=== PATIENT | female | born 1940 | race Two or more races ===

== ENCOUNTER 2018-12-08 12:34 | Outpatient (CLI) | payer MEDICARE, MEDICAID ==
[~2018-12-08 12:34] MED LIST: AMLO10TA4 PO; CLON0.1T PO; HYDR100T27 PO; METF-440 PO; NITR0.4T SL; RANI150T8 PO; ROSU10TA2 PO; SITA25TA PO; TRAM50TA2 PO; VALS1TAB4 PO
== END 2018-12-08 23:59 | disposition home or self-care (01) ==
LOC: US 12:34
DX: N28.9 Disorder of kidney and ureter, unspecified (principal); Z90.5 Acquired absence of kidney
CPT/HCPCS: 76770-TC

== ENCOUNTER 2019-03-30 16:57 | Outpatient (CLI) | payer MEDICARE, MEDICAID | END 2019-03-30 23:59 | disposition home or self-care (01) | LOC: RAD 16:57 | DX: J98.4 Other disorders of lung (principal); I51.7 Cardiomegaly; M19.011 Primary osteoarthritis, right shoulder; M40.294 Other kyphosis, thoracic region; M46.04 Spinal enthesopathy, thoracic region; I10 Essential (primary) hypertension; E11.9 Type 2 diabetes mellitus without complications; Z90.710 Acquired absence of both cervix and uterus | CPT/HCPCS: 71046 ==

== ENCOUNTER 2020-06-14 12:20 | Inpatient (IN) | payer MEDICARE, OTHER ==
[~2020-06-14] VITALS: Ht 162.6 cm; Wt 83.0 kg
--- NOTE | 2020-06-14 12:30 | NUR ---
bib daughter in law c/o fever x 4 days. vs checked. papa on monitor. iv access started blood draw done. seen by
[2020-06-14] MEDS ORDERED: ERGO500014 PO (13:16)
[2020-06-14] MEDS ORDERED: EZET10TA32 PO (13:16)
[2020-06-14] MEDS ORDERED: LEVO125T8 PO (13:16)
[2020-06-14] MEDS ORDERED: SERT25TA5 PO (13:16)
[2020-06-14] MEDS ORDERED: DEXL30CA3 PO (13:16)
[2020-06-14] MEDS ORDERED: POTA8TAB3 PO (13:16)
[2020-06-14] MEDS ORDERED: LABE100T5 PO (13:16)
[2020-06-14] MEDS ORDERED: TORS20TA3 PO (13:16)
[2020-06-14] MEDS ORDERED: ASPI-1420 PO (13:16)
--- NOTE | 2020-06-14 13:30 | NUR ---
pt offered with lunch/food to eat, but she states that she is not hungry and just wants water. water provided.
--- NOTE | 2020-06-14 13:31 | NUR ---
urine collected sent to lab
[2020-06-14 13:36] LABS: BASOPHILS % (AUTO) 0.5 % (0.0-2.0); EOSINOPHILS % (AUTO) 3.6 % (0.0-6.0); HEMATOCRIT 27 % (33-45); LYMPHOCYTES # (AUTO) 0.8 /CMM (0.8-4.8); LYMPHOCYTES % (AUTO) 12.8 % (20.0-44.0); MEAN CORPUSCULAR HGB CONC 33 g/dl (31.0-36.0); MEAN CORPUSCULAR VOLUME 102 fL (82-100); MONOCYTES # (AUTO) 0.9 /CMM (0.1-1.30); MONOCYTES % (AUTO) 16.1 % (2.0-12.0); NEUTROPHILS # (AUTO) 3.9 /CMM (1.8-8.9); PLATELET COUNT (AUTO) 189 /CMM (150-450); RED BLOOD CELL COUNT(AUTO) 2.68 MIL/uL (4.0-5.2); WHITE BLOOD COUNT (AUTO) 5.9 K/uL (4.3-11.0)
--- NOTE | 2020-06-14 13:38 | NUR ---
shirlene (daughter in law) [phone]
[2020-06-14 13:56] LABS: BILIRUBIN,URINE Negative (NEGATIVE); COLOR,URINE YELLOW (YELLOW); LEUKOCYTE ESTERASE ,URINE Small (NEGATIVE); NITRITE, URINE Negative (NEGATIVE); PROTEIN,URINE >=300 mg/dl (NEGATIVE); UGLUCOSE 100 MG/DL mg/dL (NEGATIVE); UROBILINOGEN,URINE 0.2 EU/dL (0.2)
[2020-06-14 14:01] LABS: PH,URINE >8.5 (5.0-8.0)
[2020-06-14 14:02] LABS: BACTERIA,URINE 1+ /HPF (None Seen); SQUAMOUS EPITHELIAL CELL,UR Few /HPF (None Seen)
[2020-06-14 14:12] LABS: D-DIMER 11.76 mg/L(FEU (0.17-0.50)
[2020-06-14] MEDS ORDERED: PIPERACILLIN /TAZOBACTAM 3.375 G in IV D5W 50 ML IV ONE (14:30)
--- NOTE | 2020-06-14 14:33 | NUR ---
covid antigen and pcr and rapid influenza collected and sent to lab
[2020-06-14] MEDS ORDERED: ZOLPIDEM TARTRATE 5 MG TABLET PO PRN (16:00)
[2020-06-14] MEDS ORDERED: MAGNESIUM HYDROXIDE 30 ML UDC PO PRN (16:00)
[2020-06-14] MEDS ORDERED: ONDANSETRON HCL/PF 4 MG/2 ML VIAL IVP PRN (16:00)
[2020-06-14] MEDS ORDERED: ACETAMINOPHEN 325 MG TABLET PO PRN (16:00)
[2020-06-14] MEDS ORDERED: MAG HYDROX/AL HYDROX/SIMETH 30 ML UDC PO PRN (16:00)
[2020-06-14] MEDS ORDERED: Z GUARD REMEDY 2 OZ OINT TP PRN (16:00)
--- NOTE | 2020-06-14 16:27 | NUR ---
NURSING SUP GAVE TELE BED 103.
--- NOTE | 2020-06-14 16:31 | NUR ---
STILL WAITING FOR LAB RESULT BUN AND CREATININE TO CONTINUE WITH CT PULMONARY ANGIOGRAM WITH CONTRAST.
--- NOTE | 2020-06-14 16:47 | NUR ---
pt offered with snacks, but still states that she does not feel like eating. juice provided
--- NOTE | 2020-06-14 17:26 | NUR ---
received bed 329-1
--- NOTE | 2020-06-14 17:34 | NUR ---
report given to daniel gurrola at [facility]
[2020-06-14 18:00] LABS: CREATINE KINASE, TOTAL 77 U/L (26-192)
[2020-06-14 18:24] LABS: CARBON DIOXIDE 25 mmol/L (21-32); CHLORIDE 99 mmol/L (98-107); POTASSIUM 4.6 mmol/L (3.5-5.1); SODIUM SERUM 137 mmol/L (136-145)
[2020-06-14 18:25] LABS: ALANINE AMINOTRANSFERASE 18 U/L (12-78); ALBUMIN 2.7 g/dL (3.4-5.0); ALKALINE PHOSPHATASE 50 U/L (46-116); ASPARTATE AMINOTRANSFERASE 27 U/L (15-37); B-TYPE NATRIURETIC PEPTIDE 13064 PG/ML (0-125); BILIRUBIN,TOTAL 0.5 mg/dL (0.2-1.0); C-REACTIVE PROTEIN 20.5 mg/dL (0.0-0.9); CALCIUM, SERUM 8.9 mg/dL (8.5-10.1); FERRITIN 1886 ng/mL (8-388); GLUCOSE 153 mg/dL (74-106); UREA NITROGEN, BLOOD 48 mg/dL (7-18)
[2020-06-14 18:26] LABS: TOTAL PROTEIN, SERUM 7.3 g/dL (6.4-8.2)
[2020-06-14 18:28] LABS: CREATININE 8.3 mg/dL (0.6-1.3)
--- NOTE | 2020-06-14 18:30 | NUR ---
pt transferred to room 329, rn assuming care is by bedside.
[2020-06-14] MEDS ORDERED: IV NS 0.9% 250 ML IV ONE (18:49)
[2020-06-14] MEDS ORDERED: IOHEXOL-350 100 ML VIAL IV ONE (18:49)
[2020-06-14 18:54] VITALS: BP 157/65
[2020-06-14 20:00] VITALS: BP 131/65
--- NOTE | 2020-06-14 20:47 | NUR ---
MS/TELE/RN RECEIVED PATIENT AT 1930 LYING IN BED AWAKE, ALERT, ORIENTED, COMFORTABLE, NO C/O PAIN, NO DISTRESS NOTED, CALL LIGHT IN REACH. RECEIVED A CALL FROM DR. BAKER, RECEIVED SOME PATIENT'S HISTORY. PER DR. BAKER PATIENT IS ABLE TO GIVE DIALYSIS CONSENT. DIALYSIS CONSENT WAS THEN OBTAINED FROM THE PATIENT WITH THE HD RN TRANSLATES. PRESENTLY, HD IS ONGOING. WILL ADMIT PATIENT AFTER THE DIALYSIS IS FINISHED.
[2020-06-14] MEDS: LABETALOL HCL (100MG) 100 MG TABLET PO SCH (22:47)
[2020-06-14] MEDS: PIPERACILLIN /TAZOBACTAM 2.25 G in IV D5W 50 ML IV SCH (22:54)
[2020-06-15] VITALS: BP 131/65
--- NOTE | 2020-06-15 01:03 | NUR ---
MS/TELE/RN PATIENT IS SLEEPING AT THIS TIME, APPEAR COMFORTABLE, NO SIGNS OF DISTRESS NOTED, CALL LIGHT IN REACH, WILL CONTINUE TO MONITOR.
--- NOTE | 2020-06-15 04:27 | NUR ---
MS/TELE/RN PATIENT WAS AWAKE AROUND 03:00, PAWAN MASTERS, STAYED IN THEN ROOM FOR SAFETY. PER SONAM, PATIENT WASHED HER FACE IN THE SINK AND WANTS TO GO HOME, PATIENT ALSO PULLED OUT HER IV, PATIENT CALLED DAUGHTER IN LAW, CHARGE NURSE ROLA WHO WAS IN THE ROOM AND WAS ABLE TO SPEAK TO DAUGHTER IN LAW, ROBERTO. DAUGHTER IN LAW WILLING TO COME TO ACCOMPANY THE PATIENT, NURSING TREASURER APPROVED THE REQUEST. OBTAINED ORDER FOR SITTER FROM DOCTOR ALBIN. IV WAS INSERTED AT LEFT F/A G22. DAUGHTER IN LAW IS NOW IN THE ROOM WITH THE PATIENT WHO IS CURRENTLY SITTING AT EDGE OF BED. PER DAUGHTER IN LAW, JUST REMOVE THE TELE BOX FOR NOW. WILL CONTINUE TO MONITOR PATIENT.
[2020-06-15] MEDS: PIPERACILLIN /TAZOBACTAM 2.25 G in IV D5W 50 ML IV SCH ×2 (06:27→14:18)
--- NOTE | 2020-06-15 07:00 | NUR ---
MS/TELE/RN PATIENT AWAKE, CALM AND COMFORTABLE, FAMILY MEMBER AT BEDSIDE, NO DISTRESS NOTED, ALL NEEDS ATTENDED AT THIS TIME, ENDORSED TO THE NEXT RN FOR CONTINUITY OF CARE.
[2020-06-15] MEDS ORDERED: LEVOTHYROXINE SODIUM 125 MCG TABLET PO SCH (07:30)
[2020-06-15] MEDS ORDERED: PANTOPRAZOLE 40 MG TABLET.DR PO SCH (07:30)
[2020-06-15 08:00] VITALS: BP 114/69
[2020-06-15 08:27] LABS: BASOPHILS # (AUTO) 0.1 /CMM (0.0-0.2); BASOPHILS % (AUTO) 1.5 % (0.0-2.0); EOSINOPHILS % (AUTO) 4.1 % (0.0-6.0); HEMATOCRIT 29 % (33-45); HEMOGLOBIN 9.4 g/dL (11.5-14.8); LYMPHOCYTES # (AUTO) 0.8 /CMM (0.8-4.8); LYMPHOCYTES % (AUTO) 17.5 % (20.0-44.0); MEAN CORPUSCULAR HGB CONC 33 g/dl (31.0-36.0); MEAN CORPUSCULAR VOLUME 101 fL (82-100); MONOCYTES # (AUTO) 0.6 /CMM (0.1-1.30); MONOCYTES % (AUTO) 12.9 % (2.0-12.0); PLATELET COUNT (AUTO) 234 /CMM (150-450); RED BLOOD CELL COUNT(AUTO) 2.84 MIL/uL (4.0-5.2); WHITE BLOOD COUNT (AUTO) 4.7 K/uL (4.3-11.0)
[2020-06-15 08:41] LABS: ALANINE AMINOTRANSFERASE 18 U/L (12-78); ALBUMIN 2.6 g/dL (3.4-5.0); ALKALINE PHOSPHATASE 44 U/L (46-116); ASPARTATE AMINOTRANSFERASE 21 U/L (15-37); BILIRUBIN,TOTAL 0.7 mg/dL (0.2-1.0); CALCIUM, SERUM 8.4 mg/dL (8.5-10.1); CARBON DIOXIDE 28 mmol/L (21-32); CHLORIDE 99 mmol/L (98-107); CREATININE 5.9 mg/dL (0.6-1.3); GLUCOSE 152 mg/dL (74-106); MAGNESIUM 1.9 mg/dL (1.8-2.4); PHOSPHORUS 2.3 mg/dL (2.5-4.9); POTASSIUM 4.4 mmol/L (3.5-5.1); SODIUM SERUM 139 mmol/L (136-145); TOTAL PROTEIN, SERUM 7.1 g/dL (6.4-8.2); UREA NITROGEN, BLOOD 26 mg/dL (7-18)
[2020-06-15] MEDS: LABETALOL HCL (100MG) 100 MG TABLET PO SCH (08:41)
[2020-06-15 08:45] LABS: CHOLESTEROL 127 mg/dL (<200); HDL CHOLESTEROL 47 mg/dL (40-60); LDL 57 mg/dL (0-99); PREALBUMIN 17.2 MG/DL (18.0-35.7); TRIGLYCERIDES 126 mg/dL (30-150)
[2020-06-15 09:00] VITALS: BP 114/69
[2020-06-15] MEDS ORDERED: ATORVASTATIN 10 MG TABLET PO SCH (09:00)
[2020-06-15] MEDS ORDERED: EZETIMIBE 10 MG TABLET PO SCH (09:00)
[2020-06-15] MEDS ORDERED: CLONIDINE HCL 0.1 MG TABLET PO SCH (09:00)
[2020-06-15] MEDS ORDERED: SERTRALINE HCL 25 MG TABLET PO SCH (09:00)
[2020-06-15] MEDS ORDERED: ASPIRIN EC 81 MG TABLET.DR PO SCH (09:00)
[2020-06-15 09:54] LABS: THYROID STIMULATING HORMONE 0.864 uIU/mL (0.358-3.74)
--- NOTE | 2020-06-15 14:00 | NUR ---
BRAZING MACHINE OPERATOR HELPER NOTES ATTEMPTED TO TITRATE PATIENT OF OXYGEN PATIENTS SATURATION DROPPED TO 85-88%.
--- NOTE | 2020-06-15 16:00 | NUR ---
GEOPHYSICAL SUPPORT SPECIALIST NOTES PATIENT DISCHARGED HOME IN STABLE CONDITION. PATIENT ALERT, ORIENTED X2 CONFUSED. PROVIDED DISCHARGE TEACHING TO PATIENTS DAUGHTER AND SON VERBALIZED UNDERSTANDING. PATIENTS PRESCRIPTION WITH PATIENTS DAUGHTER. DISCHARGE PROTOCOL FOLLOWED. PATIENTS SKIN INTACT. PERIPHERAL IV REMOVED WITH MINIMAL BLEEDING. ID BAND REMOVED. ALL BELONGINGS ACCOUNTED FOR, BELONGING LIST SIGNED. PATIENTS SATURATING 85-88 ON ROOM AIR. PATIENT WITH OXYGEN AT HOME. FAMILY BROUGHT O2 FOR TRANSFER. PATIENT TRANSFERRED TO CAR.
[2020-06-21] MEDS ORDERED: ERGOCALCIFEROL (VITAMIN D 2) 50,000 UNIT CAPSULE PO SCH (09:00)
== END 2020-06-15 16:10 | disposition home or self-care (01) | DRG 177 ==
LOC: ER 12:23 → TELE 17:56
PROVIDERS: ADMIT Internal Medicine; ATTEND Internal Medicine
PROC: 5A1D70Z Performance of Urinary Filtration, Intermittent, Less than 6 Hours Per Day (ICD-10-PCS; principal; 2020-06-14)
DX: J69.0 Pneumonitis due to inhalation of food and vomit (principal); J96.01 Acute respiratory failure with hypoxia; N18.6 End stage renal disease; G93.41 Metabolic encephalopathy; I13.2 Hypertensive heart and chronic kidney disease with heart failure and with stage 5 chronic kidney disease, or end stage renal disease; Z86.16 Personal history of COVID-19; D63.8 Anemia in other chronic diseases classified elsewhere; E78.5 Hyperlipidemia, unspecified; E11.22 Type 2 diabetes mellitus with diabetic chronic kidney disease; I25.10 Atherosclerotic heart disease of native coronary artery without angina pectoris; I50.9 Heart failure, unspecified; Z99.2 Dependence on renal dialysis; Z90.710 Acquired absence of both cervix and uterus; E03.9 Hypothyroidism, unspecified; I25.2 Old myocardial infarction; Z79.82 Long term (current) use of aspirin; Z79.899 Other long term (current) drug therapy; Z90.5 Acquired absence of kidney; Z85.528 Personal history of other malignant neoplasm of kidney; Z85.3 Personal history of malignant neoplasm of breast; Z85.850 Personal history of malignant neoplasm of thyroid; Z79.890 Hormone replacement therapy; K44.9 Diaphragmatic hernia without obstruction or gangrene
CPT/HCPCS: 36415; 36600; 71045-TC; 80053-TC; 80061-TC; 81001; 82550-TC; 82728-TC; 82803-TC; 83540-TC; 83605-TC; 83615-TC; 83735-TC; 83880; 84100-TC; 84134-TC; 84439-TC; 84443-TC; 84484-TC; 85025-TC; 85378-TC; 85730-TC; 86140-TC; 86706; 87040-TC; 87086-TC; 87340; 90935-TC; 93307-TC; 93970-TC; C9803; G0378; J2543; J7050; J7060; Q9967; U0003

== ENCOUNTER 2020-09-02 19:16 | Emergency (ER) | payer MEDICARE, MEDICAID ==
[~2020-09-02] VITALS: Ht 154.9 cm; Wt 72.6 kg
[~2020-09-02 19:16] MED LIST changes: -AMLO10TA4 PO; +ASPI-1420 PO; +DEXL30CA3 PO; +ERGO500014 PO; +EZET10TA32 PO; -HYDR100T27 PO; +LABE100T5 PO; +LEVO125T8 PO; -METF-440 PO; +POTA8TAB3 PO; -RANI150T8 PO; +SERT-437 PO; -SITA25TA PO; +TORS20TA3 PO; -VALS1TAB4 PO
--- NOTE | 2020-09-02 19:24 | NUR ---
PT AAOX4. LITHUANIAN SPEAKING BIBRA FROM HOME C/O NOSE BLEED WHILE WASHING DISHES (30 MINS RN NEONATAL) PT PLACED IN BED 16 ON MONITOR AND PULSE OX. PER RA PT WAS HYPERTENSIVE. ER MD AT BEDSIDE FOR EVAL. AWAITING ORDERS.
[2020-09-02] MEDS ORDERED: PHENYLEPHRINE 0.5% NASAL SPRAY 15 ML BOTTLE NS ONE ×2 (19:28→19:30)
[2020-09-02] MEDS ORDERED: IV NS 0.9% 500 ML BAG IV ONE (19:30)
--- NOTE | 2020-09-02 19:38 | NUR ---
FIRE PREVENTION RESEARCH ENGINEER AT BEDSIDE FOR BLOOD WORK
[2020-09-02 19:57] LABS: BASOPHILS % (AUTO) 0.8 % (0.0-2.0); EOSINOPHILS % (AUTO) 5.1 % (0.0-6.0); HEMATOCRIT 40 % (33-45); HEMOGLOBIN 12.7 g/dL (11.5-14.8); LYMPHOCYTES # (AUTO) 1.4 /CMM (0.8-4.8); LYMPHOCYTES % (AUTO) 22.9 % (20.0-44.0); MEAN CORPUSCULAR HGB CONC 32 g/dl (31.0-36.0); MEAN CORPUSCULAR VOLUME 102 fL (82-100); MONOCYTES # (AUTO) 0.7 /CMM (0.1-1.30); MONOCYTES % (AUTO) 11.4 % (2.0-12.0); NEUTROPHILS # (AUTO) 3.6 /CMM (1.8-8.9); NEUTROPHILS % (AUTO) 59.8 % (43.0-81.0); PLATELET COUNT (AUTO) 181 /CMM (150-450); RED BLOOD CELL COUNT(AUTO) 3.88 MIL/uL (4.0-5.2)
[2020-09-02 20:00] LABS: CALCIUM, SERUM 9.5 mg/dL (8.5-10.1); CARBON DIOXIDE 31 mmol/L (21-32); CHLORIDE 100 mmol/L (98-107); CREATININE 6.3 mg/dL (0.6-1.3); GLUCOSE 134 mg/dL (74-106); POTASSIUM 4.2 mmol/L (3.5-5.1); SODIUM SERUM 140 mmol/L (136-145); UREA NITROGEN, BLOOD 33 mg/dL (7-18)
--- NOTE | 2020-09-02 20:33 | NUR ---
Patient discharged to home in stable condition. Written and verbal after care instructions given. Pt left with grandson. Pt's nose did not bleed during ER visit.
--- NOTE | 2020-09-02 20:33 | NUR ---
IV removed. Catheter intact and site benign. Pressure and 4x4 applied to site. No bleeding noted.
[2020-09-02 20:34] VITALS: BP 145/68
== END 2020-09-02 21:51 | disposition home or self-care (01) ==
LOC: ER 19:18
DX: R04.0 Epistaxis (principal); I12.9 Hypertensive chronic kidney disease with stage 1 through stage 4 chronic kidney disease, or unspecified chronic kidney disease; E11.22 Type 2 diabetes mellitus with diabetic chronic kidney disease; N18.9 Chronic kidney disease, unspecified; E03.9 Hypothyroidism, unspecified; Z90.49 Acquired absence of other specified parts of digestive tract; Z98.890 Other specified postprocedural states; Z79.899 Other long term (current) drug therapy; Z79.82 Long term (current) use of aspirin
CPT/HCPCS: 36415; 80048; 85025; 99283; J7040

== ENCOUNTER 2023-03-19 15:22 | Inpatient (IN) | payer MEDICARE, OTHER ==
[~2023-03-19] VITALS: Ht 152.4 cm; Wt 75.3 kg
[~2023-03-19 15:22] MED LIST changes: -ERGO500014 PO; +ERGO500093 PO; -SERT-437 PO; +SERT25TA5 PO
[2023-03-19 16:06] LABS: BASOPHILS # (AUTO) 0.1 K/uL (0.0-0.2); BASOPHILS % (AUTO) 0.8 % (0.0-2.0); EOSINOPHILS # (AUTO) 0.3 K/uL (0.0-0.7); EOSINOPHILS % (AUTO) 3.1 % (0.0-6.0); HEMATOCRIT 22 % (33-45); HEMOGLOBIN 7.1 g/dL (11.5-14.8); LYMPHOCYTES # (AUTO) 1.3 K/uL (0.8-4.8); LYMPHOCYTES % (AUTO) 15.5 % (20.0-44.0); MEAN CORPUSCULAR HEMOGLOBIN 32 PG (26.0-33.0); MEAN CORPUSCULAR HGB CONC 32 g/dl (31.0-36.0); MEAN CORPUSCULAR VOLUME 101 fL (82-100); MONOCYTES # (AUTO) 0.8 K/uL (0.1-1.30); MONOCYTES % (AUTO) 9.4 % (2.0-12.0); NEUTROPHILS # (AUTO) 5.8 K/uL (1.8-8.9); NEUTROPHILS % (AUTO) 71.2 % (43.0-81.0); PLATELET COUNT (AUTO) 239 K/uL (150-450); RED CELL DISTRIBUTION WIDTH 18.1 % (11.5-15.0); WHITE BLOOD COUNT (AUTO) 8.1 K/uL (4.3-11.0)
[2023-03-19 16:17] LABS: INR 1.22 (0.91-1.10); PARTIAL THROMBOPLASTIN TIME 28.8 SEC (24.3-34.3); PROTHROMBIN TIME 12.8 SECS (9.2-11.1)
[2023-03-19 16:18] LABS: ALANINE AMINOTRANSFERASE 18 U/L (12-78); ALBUMIN 3.2 g/dL (3.4-5.0); ALKALINE PHOSPHATASE 55 U/L (46-116); ASPARTATE AMINOTRANSFERASE 15 U/L (15-37); BILIRUBIN,DIRECT 0.1 mg/dL (0.0-0.2); BILIRUBIN,TOTAL 0.6 mg/dL (0.2-1.0); CARBON DIOXIDE 32 mmol/L (21-32); CHLORIDE 97 mmol/L (98-107); CREATININE 5.7 mg/dL (0.6-1.3); GLUCOSE 111 mg/dL (74-106); POTASSIUM 4.2 mmol/L (3.5-5.1); SODIUM SERUM 138 mmol/L (136-145); TOTAL PROTEIN, SERUM 7.1 g/dL (6.4-8.2); UREA NITROGEN, BLOOD 27 mg/dL (7-18)
[2023-03-19] MEDS ORDERED: AMLO10TA4 PO (16:36)
[2023-03-19] MEDS ORDERED: FOLI0.8C PO (16:36)
[2023-03-19] MEDS ORDERED: ZOLP10TA2 PO (16:36)
[2023-03-19] MEDS ORDERED: LEVO137T24 PO (16:36)
[2023-03-19] MEDS ORDERED: FOLI0.8T23 PO (16:36)
[2023-03-19] MEDS ORDERED: SEVE800T8 PO (16:36)
[2023-03-19 16:46] VITALS: O2SAT 99
[2023-03-19 17:07] LABS: APPEARANCE,URINE CLOUDY (CLEAR); BILIRUBIN,URINE NEGATIVE (NEGATIVE); BLOOD, URINE TRACE-INTA Ery/uL (NEGATIVE); COLOR,URINE YELLOW (YELLOW); KETONES,URINE NEGATIVE (NEGATIVE); LEUKOCYTE ESTERASE ,URINE TRACE (NEGATIVE); NITRITE, URINE NEGATIVE (NEGATIVE); PH,URINE 8.5 (5.0-8.0); PROTEIN,URINE 3+ mg/dl (NEGATIVE); UGLUCOSE NEGATIVE (NEGATIVE); UROBILINOGEN,URINE 0.2 EU/dL (0.2)
[2023-03-19 18:01] LABS: ADD URINE CULTURE NO; BACTERIA,URINE None seen /HPF (None Seen); MUCUS,URINE Moderate /LPF (None Seen); RBC,URINE 0-2 /HPF (0-2); SQUAMOUS EPITHELIAL CELL,UR 51-80 /HPF (None Seen)
[2023-03-19 18:21] LABS: THYROID STIMULATING HORMONE 1.77 uIU/mL (0.358-3.74)
[2023-03-19] MEDS ORDERED: ONDANSETRON HCL/PF 4 MG/2 ML VIAL IVP PRN (18:30)
[2023-03-19] MEDS ORDERED: CLONIDINE HCL 0.1 MG TABLET PO PRN (18:30)
[2023-03-19] MEDS ORDERED: Z GUARD REMEDY 4 OZ OINT TP PRN (18:30)
[2023-03-19] MEDS ORDERED: ZOLPIDEM TARTRATE 5 MG TABLET PO PRN (18:30)
[2023-03-19] MEDS ORDERED: MAGNESIUM HYDROXIDE 30 ML UDC PO PRN (18:30)
[2023-03-19] MEDS ORDERED: MAG HYDROX/AL HYDROX/SIMETH 30 ML UDC PO PRN (18:30)
[2023-03-19] MEDS ORDERED: ACETAMINOPHEN 325 MG TABLET PO PRN (18:30)
[2023-03-19 19:01] LABS: IRON, SERUM 54 ug/dl (50-175); TOTAL IRON BINDING CAPACITY 271 ug/dl (250-450)
[2023-03-19] MEDS: PIPERACILLIN /TAZOBACTAM 2.25 G in IV D5W 50 ML IV SCH (19:18)
[2023-03-19 20:00] VITALS: BP 141/54; TEMP 97.9; O2SAT 94
[2023-03-19] MEDS ORDERED: AMLODIPINE BESYLATE 10 MG TABLET PO SCH (22:00)
[2023-03-20] MEDS: PIPERACILLIN /TAZOBACTAM 2.25 G in IV D5W 50 ML IV SCH ×3 (03:13→18:00)
[2023-03-20 05:00] VITALS: BP 135/50; TEMP 97.8
[2023-03-20 07:00] VITALS: BP 160/60; TEMP 98.4; O2SAT 96
[2023-03-20 07:14] LABS: BASOPHILS # (AUTO) 0.1 K/uL (0.0-0.2); BASOPHILS % (AUTO) 1.1 % (0.0-2.0); EOSINOPHILS # (AUTO) 0.3 K/uL (0.0-0.7); EOSINOPHILS % (AUTO) 2.9 % (0.0-6.0); HEMATOCRIT 21 % (33-45); LYMPHOCYTES # (AUTO) 1.3 K/uL (0.8-4.8); LYMPHOCYTES % (AUTO) 14.9 % (20.0-44.0); MEAN CORPUSCULAR HEMOGLOBIN 33 PG (26.0-33.0); MEAN CORPUSCULAR HGB CONC 33 g/dl (31.0-36.0); MEAN CORPUSCULAR VOLUME 102 fL (82-100); MONOCYTES # (AUTO) 0.9 K/uL (0.1-1.30); MONOCYTES % (AUTO) 10.2 % (2.0-12.0); NEUTROPHILS # (AUTO) 6.2 K/uL (1.8-8.9); NEUTROPHILS % (AUTO) 70.9 % (43.0-81.0); PLATELET COUNT (AUTO) 218 K/uL (150-450); RED BLOOD CELL COUNT(AUTO) 2.02 MIL/uL (4.0-5.2); RED CELL DISTRIBUTION WIDTH 18.5 % (11.5-15.0); WHITE BLOOD COUNT (AUTO) 8.8 K/uL (4.3-11.0)
[2023-03-20 07:28] LABS: HEMOGLOBIN 6.7 g/dL (11.5-14.8)
[2023-03-20] MEDS ORDERED: LEVOTHYROXINE SODIUM 137 MCG TABLET PO SCH (07:30)
[2023-03-20 07:37] LABS: ALANINE AMINOTRANSFERASE 16 U/L (12-78); ALKALINE PHOSPHATASE 49 U/L (46-116); ASPARTATE AMINOTRANSFERASE 27 U/L (15-37); BILIRUBIN,TOTAL 0.7 mg/dL (0.2-1.0); CALCIUM, SERUM 9.8 mg/dL (8.5-10.1); CARBON DIOXIDE 30 mmol/L (21-32); CHLORIDE 96 mmol/L (98-107); CREATININE 6.6 mg/dL (0.6-1.3); GLUCOSE 101 mg/dL (74-106); MAGNESIUM 2.5 mg/dL (1.8-2.4); POTASSIUM 4.9 mmol/L (3.5-5.1); SODIUM SERUM 135 mmol/L (136-145); TOTAL PROTEIN, SERUM 6.9 g/dL (6.4-8.2); UREA NITROGEN, BLOOD 36 mg/dL (7-18)
[2023-03-20 08:51] LABS: BASOPHILS # (AUTO) 0.1 K/uL (0.0-0.2); BASOPHILS % (AUTO) 0.6 % (0.0-2.0); EOSINOPHILS # (AUTO) 0.2 K/uL (0.0-0.7); EOSINOPHILS % (AUTO) 2.3 % (0.0-6.0); HEMATOCRIT 22 % (33-45); LYMPHOCYTES # (AUTO) 1.3 K/uL (0.8-4.8); LYMPHOCYTES % (AUTO) 14.6 % (20.0-44.0); MEAN CORPUSCULAR HEMOGLOBIN 33 PG (26.0-33.0); MEAN CORPUSCULAR HGB CONC 32 g/dl (31.0-36.0); MEAN CORPUSCULAR VOLUME 103 fL (82-100); MONOCYTES # (AUTO) 0.9 K/uL (0.1-1.30); MONOCYTES % (AUTO) 9.3 % (2.0-12.0); NEUTROPHILS # (AUTO) 6.7 K/uL (1.8-8.9); NEUTROPHILS % (AUTO) 73.2 % (43.0-81.0); PLATELET COUNT (AUTO) 229 K/uL (150-450); RED BLOOD CELL COUNT(AUTO) 2.16 MIL/uL (4.0-5.2); RED CELL DISTRIBUTION WIDTH 18.5 % (11.5-15.0); WHITE BLOOD COUNT (AUTO) 9.1 K/uL (4.3-11.0)
[2023-03-20] MEDS: SEVELAMER CARBONATE 800 MG TABLET PO SCH ×3 (08:54→17:10)
[2023-03-20] MEDS ORDERED: ASPIRIN EC 81 MG TABLET.DR PO SCH (09:00)
[2023-03-20] MEDS ORDERED: LABETALOL HCL (100MG) 100 MG TABLET PO SCH (09:00)
[2023-03-20] MEDS ORDERED: VIT B CMPLX 3/FA/VIT C/BIOTIN 1 TAB TABLET PO SCH (10:00)
[2023-03-20 10:58] LABS: ANISOCYTOSIS 1+; PLATELET ESTIMATE ADEQUATE
[2023-03-20 10:59] LABS: OVALOCYTES OCC
[2023-03-20 12:00] VITALS: TEMP 97.7; O2SAT 96
[2023-03-20 16:00] VITALS: BP 155/57; TEMP 98.4; O2SAT 94
[2023-03-20] MEDS ORDERED: ATORVASTATIN 40 MG TABLET PO SCH (18:00)
[2023-03-20] MEDS ORDERED: FOLIC ACID 1 MG TABLET PO SCH (18:00)
[2023-03-22 13:07] LABS: HEPATITIS B SURFACE AB Reactive (.)
[2023-04-18] MEDS ORDERED: ERGOCALCIFEROL (VITAMIN D 2) 50,000 UNIT CAPSULE PO SCH (09:00)
== END 2023-03-20 19:27 | disposition home or self-care (01) | DRG 193 ==
LOC: ER 15:42 → TELE 18:30
PROVIDERS: ADMIT Internal Medicine; ATTEND Internal Medicine
PROC: 5A1D70Z Performance of Urinary Filtration, Intermittent, Less than 6 Hours Per Day (ICD-10-PCS; principal; 2023-03-20)
PROC: 30233N1 Transfusion of Nonautologous Red Blood Cells into Peripheral Vein, Percutaneous Approach (ICD-10-PCS; 2023-03-20)
DX: J15.9 Unspecified bacterial pneumonia (principal); I50.33 Acute on chronic diastolic (congestive) heart failure; J96.01 Acute respiratory failure with hypoxia; N18.6 End stage renal disease; I13.2 Hypertensive heart and chronic kidney disease with heart failure and with stage 5 chronic kidney disease, or end stage renal disease; Z20.822 Contact with and (suspected) exposure to COVID-19; D63.8 Anemia in other chronic diseases classified elsewhere; E03.9 Hypothyroidism, unspecified; E11.22 Type 2 diabetes mellitus with diabetic chronic kidney disease; E78.5 Hyperlipidemia, unspecified; I25.10 Atherosclerotic heart disease of native coronary artery without angina pectoris; Z85.3 Personal history of malignant neoplasm of breast; Z90.5 Acquired absence of kidney; Z85.850 Personal history of malignant neoplasm of thyroid; Z85.528 Personal history of other malignant neoplasm of kidney; Z92.3 Personal history of irradiation; R53.1 Weakness; Z99.2 Dependence on renal dialysis; I27.20 Pulmonary hypertension, unspecified; D50.0 Iron deficiency anemia secondary to blood loss (chronic); N25.0 Renal osteodystrophy; R00.1 Bradycardia, unspecified
CPT/HCPCS: 36415; 71045-TC; 71250-TC; 80048-TC; 80053-TC; 80076-TC; 81001; 83540-TC; 83735-TC; 83880; 84100-TC; 84443-TC; 84484-TC; 85025-TC; 85730-TC; 86706; 86850-TC; 87340; 90935-TC; 93307-TC; A4223; A6403; C9803; G0378; J2543; J7030; J7050; J7060; P9016

== ENCOUNTER 2023-05-07 14:55 | Emergency (ER) | payer MEDICARE, OTHER ==
[~2023-05-07] VITALS: Ht 162.6 cm; Wt 78.9 kg
[~2023-05-07 14:55] MED LIST changes: +AMLO10TA4 PO; -DEXL30CA3 PO; -EZET10TA32 PO; +FOLI0.8C PO; +FOLI0.8T23 PO; -LABE100T5 PO; -LEVO125T8 PO; +LEVO137T24 PO; -NITR0.4T SL; -POTA8TAB3 PO; -SERT25TA5 PO; +SEVE800T8 PO; -TORS20TA3 PO; +ZOLP10TA2 PO
[2023-05-07 16:42] LABS: BASOPHILS % (AUTO) 0.3 % (0.0-2.0); EOSINOPHILS % (AUTO) 0.4 % (0.0-6.0); HEMATOCRIT 27 % (33-45); HEMOGLOBIN 8.8 g/dL (11.5-14.8); LYMPHOCYTES # (AUTO) 0.8 K/uL (0.8-4.8); LYMPHOCYTES % (AUTO) 7.9 % (20.0-44.0); MEAN CORPUSCULAR HEMOGLOBIN 31 PG (26.0-33.0); MEAN CORPUSCULAR HGB CONC 32 g/dl (31.0-36.0); MEAN CORPUSCULAR VOLUME 97 fL (82-100); MONOCYTES # (AUTO) 0.8 K/uL (0.1-1.30); MONOCYTES % (AUTO) 8.7 % (2.0-12.0); NEUTROPHILS # (AUTO) 7.9 K/uL (1.8-8.9); NEUTROPHILS % (AUTO) 82.7 % (43.0-81.0); PLATELET COUNT (AUTO) 290 K/uL (150-450); RED BLOOD CELL COUNT(AUTO) 2.81 MIL/uL (4.0-5.2); RED CELL DISTRIBUTION WIDTH 18.8 % (11.5-15.0); WHITE BLOOD COUNT (AUTO) 9.5 K/uL (4.3-11.0)
[2023-05-07] MEDS ORDERED: HYDR-4077 PO (16:54)
[2023-05-07 16:59] LABS: CALCIUM, SERUM 10.1 mg/dL (8.5-10.1); CARBON DIOXIDE 32 mmol/L (21-32); CHLORIDE 94 mmol/L (98-107); CREATININE 5.3 mg/dL (0.6-1.3); GLUCOSE 129 mg/dL (74-106); POTASSIUM 3.3 mmol/L (3.5-5.1); SODIUM SERUM 137 mmol/L (136-145); UREA NITROGEN, BLOOD 15 mg/dL (7-18)
[2023-05-07 17:06] LABS: NT-PRO BNP 20839 pg/mL (0-125)
[2023-05-07] MEDS ORDERED: AMOX500T2 PO (17:40)
[2023-05-07 18:09] VITALS: BP 166/64; TEMP 98.4; O2SAT 100
== END 2023-05-07 18:10 | disposition home or self-care (01) ==
LOC: ER 14:58
DX: S02.40DA Maxillary fracture, left side, initial encounter for closed fracture (principal); S02.32XA Fracture of orbital floor, left side, initial encounter for closed fracture; I48.91 Unspecified atrial fibrillation; I12.0 Hypertensive chronic kidney disease with stage 5 chronic kidney disease or end stage renal disease; E11.22 Type 2 diabetes mellitus with diabetic chronic kidney disease; N18.6 End stage renal disease; E03.9 Hypothyroidism, unspecified; Z99.2 Dependence on renal dialysis; Z85.3 Personal history of malignant neoplasm of breast; Z90.710 Acquired absence of both cervix and uterus; Z79.899 Other long term (current) drug therapy; W18.30XA Fall on same level, unspecified, initial encounter; Y93.89 Activity, other specified; Y92.89 Other specified places as the place of occurrence of the external cause; Y99.8 Other external cause status
CPT/HCPCS: 99285; 72125; 71045; 93005 ×2; 72170; 73564; 70450; 70486; 85025; 80048; 83690; 36415; 84484; 83880; L0172

== ENCOUNTER 2023-05-27 17:35 | Inpatient (IN) | payer MEDICARE, OTHER ==
[~2023-05-27] VITALS: Ht 152.4 cm; Wt 75.7 kg
[~2023-05-27 17:35] MED LIST changes: +AMOX500T2 PO; +HYDR-4077 PO
[2023-05-27 19:49] LABS: INR 1.24 (0.91-1.10); PARTIAL THROMBOPLASTIN TIME 32.5 SEC (24.3-34.3)
[2023-05-27 19:59] LABS: LACTIC ACID 1.5 mmol/L (0.4-2.0)
[2023-05-27 20:04] LABS: BASOPHILS % (AUTO) 0.5 % (0.0-2.0); EOSINOPHILS # (AUTO) 0.1 K/uL (0.0-0.7); EOSINOPHILS % (AUTO) 1.3 % (0.0-6.0); LYMPHOCYTES # (AUTO) 0.8 K/uL (0.8-4.8); LYMPHOCYTES % (AUTO) 11.4 % (20.0-44.0); MEAN CORPUSCULAR HEMOGLOBIN 33 PG (26.0-33.0); MEAN CORPUSCULAR HGB CONC 32 g/dl (31.0-36.0); MEAN CORPUSCULAR VOLUME 102 fL (82-100); MONOCYTES # (AUTO) 0.8 K/uL (0.1-1.30); MONOCYTES % (AUTO) 11.5 % (2.0-12.0); NEUTROPHILS # (AUTO) 5.4 K/uL (1.8-8.9); NEUTROPHILS % (AUTO) 75.3 % (43.0-81.0); PLATELET COUNT (AUTO) 230 K/uL (150-450); RED CELL DISTRIBUTION WIDTH 22.5 % (11.5-15.0); WHITE BLOOD COUNT (AUTO) 7.2 K/uL (4.3-11.0)
[2023-05-27 20:05] LABS: HEMATOCRIT 14 % (33-45); RED BLOOD CELL COUNT(AUTO) 1.38 MIL/uL (4.0-5.2)
[2023-05-27 20:07] LABS: HEMOGLOBIN 4.5 g/dL (11.5-14.8)
[2023-05-27 20:15] LABS: ALANINE AMINOTRANSFERASE 15 U/L (12-78); ALBUMIN 2.5 g/dL (3.4-5.0); ALKALINE PHOSPHATASE 63 U/L (46-116); ASPARTATE AMINOTRANSFERASE 16 U/L (15-37); BILIRUBIN,DIRECT 0.1 mg/dL (0.0-0.2); BILIRUBIN,TOTAL 0.4 mg/dL (0.2-1.0); CARBON DIOXIDE 35 mmol/L (21-32); CHLORIDE 97 mmol/L (98-107); CREATININE 3.1 mg/dL (0.6-1.3); GLUCOSE 112 mg/dL (74-106); LIPASE 153 U/L (16-77); POTASSIUM 3.6 mmol/L (3.5-5.1); SODIUM SERUM 139 mmol/L (136-145); TOTAL PROTEIN, SERUM 6.9 g/dL (6.4-8.2); UREA NITROGEN, BLOOD 14 mg/dL (7-18)
[2023-05-27 20:46] LABS: OCCULT BLOOD STOOL POSITIVE (NEGATIVE)
[2023-05-27 21:04] LABS: ANISOCYTOSIS 1+; EOSINOPHILS % (MANUAL) 2 % (0-4); LYMPHOCYTES % (MANUAL) 14 % (16-48); MONOCYTES % (MANUAL) 5 % (0-11.0); NEUTROPHILS % (MANUAL) 79 (42-76); OVALOCYTES 1+; PLATELET ESTIMATE ADEQUATE; ROULEAUX 1+
[2023-05-27] MEDS ORDERED: EPOETIN ALFA (10,000 UNIT) 10,000 UNIT/ML VIAL IV ONE (21:30)
[2023-05-27] MEDS ORDERED: PANTOPRAZOLE 80 MG in IV NS 0.9% 100 ML IV ONE (22:00)
[2023-05-27] MEDS ORDERED: PANTOPRAZOLE 80 MG in IV NS 0.9% 500 ML IV ONE (22:00)
[2023-05-27] MEDS ORDERED: ACETAMINOPHEN 325 MG TABLET PO PRN (22:30)
[2023-05-27] MEDS ORDERED: ONDANSETRON HCL/PF 4 MG/2 ML VIAL IVP PRN (22:30)
[2023-05-27] MEDS ORDERED: Z GUARD REMEDY 4 OZ OINT TP PRN (22:30)
[2023-05-28] VITALS (11 sets, daily range): BP systolic 120–157; BP diastolic 50–71; TEMP 97.7–99; O2SAT 90–96
[2023-05-28] MEDS ORDERED: PANTOPRAZOLE 40 MG VIAL ONE (00:28)
[2023-05-28] MEDS ORDERED: LORAZEPAM INJ 2 MG/ML VIAL IV ONE ×2 (03:00→14:30)
[2023-05-28] MEDS: PANTOPRAZOLE 40 MG VIAL IV SCH ×2 (08:49→21:13)
[2023-05-28] MEDS ORDERED: EPOETIN ALFA (10,000 UNIT) 10,000 UNIT/ML VIAL IV ONE (09:00)
[2023-05-28 12:08] LABS: BASOPHILS % (AUTO) 0.3 % (0.0-2.0); EOSINOPHILS # (AUTO) 0.1 K/uL (0.0-0.7); EOSINOPHILS % (AUTO) 0.8 % (0.0-6.0); HEMATOCRIT 22 % (33-45); HEMOGLOBIN 7.3 g/dL (11.5-14.8); LYMPHOCYTES # (AUTO) 0.9 K/uL (0.8-4.8); LYMPHOCYTES % (AUTO) 9.3 % (20.0-44.0); MEAN CORPUSCULAR HEMOGLOBIN 32 PG (26.0-33.0); MEAN CORPUSCULAR HGB CONC 33 g/dl (31.0-36.0); MEAN CORPUSCULAR VOLUME 95 fL (82-100); MONOCYTES # (AUTO) 0.9 K/uL (0.1-1.30); MONOCYTES % (AUTO) 9.6 % (2.0-12.0); NEUTROPHILS # (AUTO) 7.6 K/uL (1.8-8.9); PLATELET COUNT (AUTO) 222 K/uL (150-450); RED BLOOD CELL COUNT(AUTO) 2.33 MIL/uL (4.0-5.2); RED CELL DISTRIBUTION WIDTH 21.5 % (11.5-15.0); WHITE BLOOD COUNT (AUTO) 9.5 K/uL (4.3-11.0)
[2023-05-28 12:29] LABS: CALCIUM, SERUM 8.8 mg/dL (8.5-10.1); CARBON DIOXIDE 32 mmol/L (21-32); CHLORIDE 100 mmol/L (98-107); CREATININE 4.3 mg/dL (0.6-1.3); GLUCOSE 108 mg/dL (74-106); PHOSPHORUS 2.3 mg/dL (2.5-4.9); POTASSIUM 3.8 mmol/L (3.5-5.1); SODIUM SERUM 138 mmol/L (136-145); UREA NITROGEN, BLOOD 19 mg/dL (7-18)
[2023-05-28] MEDS ORDERED: CT SWABBABLE VALVE TRANS SET 1 EA INFUS.SET MC ONE (12:39)
[2023-05-28] MEDS ORDERED: IV NS 0.9% 250 ML IV ONE (12:39)
[2023-05-28] MEDS ORDERED: IOHEXOL-350 100 ML VIAL IV ONE (12:39)
[2023-05-28 12:55] LABS: LIPASE 140 U/L (16-77); NT-PRO BNP > 25000 pg/mL (0-125)
[2023-05-28 12:57] LABS: CHOLESTEROL 171 mg/dL (<200); HDL CHOLESTEROL 67 mg/dL (40-60); LDL 88 mg/dL (0-99); TRIGLYCERIDES 71 mg/dL (30-150)
[2023-05-28 13:26] LABS: FERRITIN 3375 ng/mL (8-388); THYROID STIMULATING HORMONE 2.017 uIU/mL (0.358-3.74)
[2023-05-28 13:55] LABS: IRON, SERUM 74 ug/dl (50-175); TOTAL IRON BINDING CAPACITY 228 ug/dl (250-450)
[2023-05-28 16:47] LABS: BASOPHILS % (AUTO) 0.3 % (0.0-2.0); EOSINOPHILS # (AUTO) 0.1 K/uL (0.0-0.7); EOSINOPHILS % (AUTO) 0.6 % (0.0-6.0); HEMATOCRIT 26 % (33-45); HEMOGLOBIN 8.1 g/dL (11.5-14.8); LYMPHOCYTES # (AUTO) 0.7 K/uL (0.8-4.8); LYMPHOCYTES % (AUTO) 5.5 % (20.0-44.0); MEAN CORPUSCULAR HEMOGLOBIN 31 PG (26.0-33.0); MEAN CORPUSCULAR HGB CONC 31 g/dl (31.0-36.0); MEAN CORPUSCULAR VOLUME 98 fL (82-100); MONOCYTES # (AUTO) 1.2 K/uL (0.1-1.30); MONOCYTES % (AUTO) 10.4 % (2.0-12.0); NEUTROPHILS # (AUTO) 9.9 K/uL (1.8-8.9); NEUTROPHILS % (AUTO) 83.2 % (43.0-81.0); PLATELET COUNT (AUTO) 232 K/uL (150-450); RED BLOOD CELL COUNT(AUTO) 2.62 MIL/uL (4.0-5.2); RED CELL DISTRIBUTION WIDTH 22.1 % (11.5-15.0); WHITE BLOOD COUNT (AUTO) 11.9 K/uL (4.3-11.0)
[2023-05-28 23:29] LABS: ABG BASE EXCESS 4.7 mmol/L; ABG OXYGEN SATURATION 87.1 % (92.0-98.5); ABG PCO2 43.5 mmHg (35.0-45.0); ABG PH 7.446 (7.350-7.450); ABG PO2 53.1 mmHg (75.0-100.0); ABG TOTAL HEMOGLOBIN 9.4 G/dL (12.0-16.0); AaDO2 153.1 mmHg; COHb 0.7 % (0.5-1.5); MetHb 0.2 % (0.0-1.5); O2Hb 86.3 % (94.0-97.0); SITE, ABG Left Radial; VENT MODE, BG 4 LPM NC
[2023-05-29] VITALS: BP_SYST 123; BP_SYST 125; BP_DIAS 49; TEMP 98; O2SAT 95
[2023-05-29 04:13] VITALS: BP 127/68; TEMP 98; O2SAT 94
[2023-05-29 08:00] LABS: BASOPHILS % (AUTO) 0.4 % (0.0-2.0); EOSINOPHILS # (AUTO) 0.1 K/uL (0.0-0.7); EOSINOPHILS % (AUTO) 1.2 % (0.0-6.0); HEMATOCRIT 25 % (33-45); HEMOGLOBIN 8.1 g/dL (11.5-14.8); LYMPHOCYTES % (AUTO) 9.5 % (20.0-44.0); MEAN CORPUSCULAR HEMOGLOBIN 32 PG (26.0-33.0); MEAN CORPUSCULAR HGB CONC 32 g/dl (31.0-36.0); MEAN CORPUSCULAR VOLUME 99 fL (82-100); MONOCYTES # (AUTO) 1.2 K/uL (0.1-1.30); MONOCYTES % (AUTO) 10.9 % (2.0-12.0); NEUTROPHILS # (AUTO) 8.4 K/uL (1.8-8.9); PLATELET COUNT (AUTO) 233 K/uL (150-450); RED BLOOD CELL COUNT(AUTO) 2.55 MIL/uL (4.0-5.2); RED CELL DISTRIBUTION WIDTH 21.8 % (11.5-15.0); WHITE BLOOD COUNT (AUTO) 10.7 K/uL (4.3-11.0)
[2023-05-29 08:11] LABS: CALCIUM, SERUM 9.1 mg/dL (8.5-10.1); CARBON DIOXIDE 30 mmol/L (21-32); CHLORIDE 101 mmol/L (98-107); CREATININE 4.3 mg/dL (0.6-1.3); GLUCOSE 93 mg/dL (74-106); MAGNESIUM 2.1 mg/dL (1.8-2.4); PHOSPHORUS 2.2 mg/dL (2.5-4.9); POTASSIUM 4.2 mmol/L (3.5-5.1); SODIUM SERUM 137 mmol/L (136-145); UREA NITROGEN, BLOOD 15 mg/dL (7-18)
[2023-05-29] MEDS: PANTOPRAZOLE 40 MG VIAL IV SCH ×2 (08:20→20:01)
[2023-05-29 08:28] VITALS: BP 126/46; TEMP 98.4; O2SAT 96
[2023-05-29 12:00] VITALS: BP 134/56; TEMP 98.5; O2SAT 100
[2023-05-29] MEDS ORDERED: ALBUMIN 25% 25 GM in PREMIX 1 EA IV STA (12:54)
[2023-05-29] MEDS ORDERED: ALBUMIN 25% 12.5 GM/50 ML BOTTLE IV ONE (13:00)
[2023-05-29] MEDS ORDERED: ALBUMIN 25% 25 GM in PREMIX 1 EA IV ONE (13:00)
[2023-05-29] MEDS ORDERED: K PHOS NEUTRAL 250 MG TABLET PO ONE (16:00)
[2023-05-29 16:02] VITALS: BP 138/70; TEMP 98.4; O2SAT 97
[2023-05-29] MEDS ORDERED: TRAMADOL HCL 50 MG TABLET PO STA (16:25)
[2023-05-29 20:00] VITALS: BP 153/60; TEMP 98.4; O2SAT 95
[2023-05-29] MEDS: ZOLPIDEM TARTRATE 10 MG TABLET PO PRN (21:33)
[2023-05-30] VITALS (11 sets, daily range): BP systolic 105–164; BP diastolic 36–82; TEMP 97.3–98.7; O2SAT 93–97
[2023-05-30 07:35] LABS: BASOPHILS % (AUTO) 0.5 % (0.0-2.0); EOSINOPHILS # (AUTO) 0.2 K/uL (0.0-0.7); HEMATOCRIT 22 % (33-45); LYMPHOCYTES # (AUTO) 0.7 K/uL (0.8-4.8); LYMPHOCYTES % (AUTO) 8.4 % (20.0-44.0); MEAN CORPUSCULAR HEMOGLOBIN 31 PG (26.0-33.0); MEAN CORPUSCULAR HGB CONC 32 g/dl (31.0-36.0); MEAN CORPUSCULAR VOLUME 98 fL (82-100); MONOCYTES # (AUTO) 0.9 K/uL (0.1-1.30); MONOCYTES % (AUTO) 11.2 % (2.0-12.0); NEUTROPHILS % (AUTO) 76.9 % (43.0-81.0); PLATELET COUNT (AUTO) 210 K/uL (150-450); RED BLOOD CELL COUNT(AUTO) 2.25 MIL/uL (4.0-5.2); RED CELL DISTRIBUTION WIDTH 21.7 % (11.5-15.0); WHITE BLOOD COUNT (AUTO) 7.8 K/uL (4.3-11.0)
[2023-05-30 08:33] LABS: CALCIUM, SERUM 9.2 mg/dL (8.5-10.1); CARBON DIOXIDE 26 mmol/L (21-32); CHLORIDE 102 mmol/L (98-107); CREATININE 4.2 mg/dL (0.6-1.3); GLUCOSE 98 mg/dL (74-106); PHOSPHORUS 3.4 mg/dL (2.5-4.9); POTASSIUM 3.8 mmol/L (3.5-5.1); SODIUM SERUM 137 mmol/L (136-145); UREA NITROGEN, BLOOD 14 mg/dL (7-18)
[2023-05-30] MEDS: PANTOPRAZOLE 40 MG VIAL IV SCH ×2 (09:45→21:20)
[2023-05-30] MEDS: PIPERACILLIN /TAZOBACTAM 2.25 G in IV D5W 50 ML IV SCH ×3 (12:36→23:58)
[2023-05-30] MEDS: ZOLPIDEM TARTRATE 10 MG TABLET PO PRN (22:47)
[2023-05-31] VITALS (11 sets, daily range): BP systolic 123–158; BP diastolic 47–86; TEMP 97.2–98.2; O2SAT 94–100
[2023-05-31] MEDS: PIPERACILLIN /TAZOBACTAM 2.25 G in IV D5W 50 ML IV SCH ×3 (05:25→17:36)
[2023-05-31 07:23] LABS: BASOPHILS % (AUTO) 0.4 % (0.0-2.0); EOSINOPHILS # (AUTO) 0.2 K/uL (0.0-0.7); EOSINOPHILS % (AUTO) 3.1 % (0.0-6.0); HEMATOCRIT 27 % (33-45); HEMOGLOBIN 8.8 g/dL (11.5-14.8); LYMPHOCYTES # (AUTO) 0.5 K/uL (0.8-4.8); MEAN CORPUSCULAR HEMOGLOBIN 31 PG (26.0-33.0); MEAN CORPUSCULAR HGB CONC 33 g/dl (31.0-36.0); MEAN CORPUSCULAR VOLUME 94 fL (82-100); MONOCYTES # (AUTO) 0.7 K/uL (0.1-1.30); MONOCYTES % (AUTO) 10.3 % (2.0-12.0); NEUTROPHILS # (AUTO) 5.6 K/uL (1.8-8.9); NEUTROPHILS % (AUTO) 79.2 % (43.0-81.0); PLATELET COUNT (AUTO) 207 K/uL (150-450); RED BLOOD CELL COUNT(AUTO) 2.81 MIL/uL (4.0-5.2); RED CELL DISTRIBUTION WIDTH 19.1 % (11.5-15.0); WHITE BLOOD COUNT (AUTO) 7.1 K/uL (4.3-11.0)
[2023-05-31 07:32] LABS: CARBON DIOXIDE 28 mmol/L (21-32); CHLORIDE 103 mmol/L (98-107); CREATININE 3.5 mg/dL (0.6-1.3); GLUCOSE 126 mg/dL (74-106); MAGNESIUM 1.8 mg/dL (1.8-2.4); PHOSPHORUS 2.2 mg/dL (2.5-4.9); POTASSIUM 3.3 mmol/L (3.5-5.1); SODIUM SERUM 138 mmol/L (136-145); UREA NITROGEN, BLOOD 10 mg/dL (7-18)
[2023-05-31] MEDS: PANTOPRAZOLE 40 MG VIAL IV SCH ×2 (08:05→21:05)
[2023-05-31] MEDS ORDERED: POTASSIUM CL. PREMIX PERIPHER. 50 ML IV ONE ×2 (09:00→10:00)
[2023-05-31] MEDS: ZOLPIDEM TARTRATE 10 MG TABLET PO PRN (21:45)
[2023-06-01] VITALS: BP 133/67; TEMP 98.4; O2SAT 95
[2023-06-01] MEDS: PIPERACILLIN /TAZOBACTAM 2.25 G in IV D5W 50 ML IV SCH ×4 (00:16→17:15)
[2023-06-01 04:00] VITALS: BP 138/45; TEMP 98.5; O2SAT 95
[2023-06-01 08:03] LABS: BASOPHILS % (AUTO) 0.5 % (0.0-2.0); EOSINOPHILS # (AUTO) 0.2 K/uL (0.0-0.7); EOSINOPHILS % (AUTO) 3.2 % (0.0-6.0); HEMATOCRIT 27 % (33-45); HEMOGLOBIN 9.1 g/dL (11.5-14.8); LYMPHOCYTES # (AUTO) 0.6 K/uL (0.8-4.8); LYMPHOCYTES % (AUTO) 9.2 % (20.0-44.0); MEAN CORPUSCULAR HEMOGLOBIN 32 PG (26.0-33.0); MEAN CORPUSCULAR HGB CONC 34 g/dl (31.0-36.0); MEAN CORPUSCULAR VOLUME 94 fL (82-100); MONOCYTES # (AUTO) 0.8 K/uL (0.1-1.30); MONOCYTES % (AUTO) 11.8 % (2.0-12.0); NEUTROPHILS # (AUTO) 5.1 K/uL (1.8-8.9); NEUTROPHILS % (AUTO) 75.3 % (43.0-81.0); PLATELET COUNT (AUTO) 208 K/uL (150-450); RED BLOOD CELL COUNT(AUTO) 2.89 MIL/uL (4.0-5.2); RED CELL DISTRIBUTION WIDTH 19.3 % (11.5-15.0); WHITE BLOOD COUNT (AUTO) 6.7 K/uL (4.3-11.0)
[2023-06-01 08:22] LABS: ALANINE AMINOTRANSFERASE 27 U/L (12-78); ALBUMIN 2.4 g/dL (3.4-5.0); ALKALINE PHOSPHATASE 66 U/L (46-116); ASPARTATE AMINOTRANSFERASE 33 U/L (15-37); BILIRUBIN,TOTAL 0.9 mg/dL (0.2-1.0); CALCIUM, SERUM 9.1 mg/dL (8.5-10.1); CARBON DIOXIDE 24 mmol/L (21-32); CHLORIDE 100 mmol/L (98-107); CREATININE 5.1 mg/dL (0.6-1.3); GLUCOSE 118 mg/dL (74-106); POTASSIUM 3.7 mmol/L (3.5-5.1); SODIUM SERUM 136 mmol/L (136-145); TOTAL PROTEIN, SERUM 6.7 g/dL (6.4-8.2); UREA NITROGEN, BLOOD 21 mg/dL (7-18)
[2023-06-01] MEDS: PANTOPRAZOLE 40 MG VIAL IV SCH (08:23)
[2023-06-01] MEDS ORDERED: CLONIDINE HCL 0.1 MG TABLET PO PRN (09:00)
[2023-06-01] MEDS ORDERED: TRAMADOL HCL 50 MG TABLET PO PRN (09:00)
[2023-06-01 09:16] VITALS: BP 116/82; TEMP 98.8; O2SAT 96
[2023-06-01] MEDS: LEVOTHYROXINE SODIUM 137 MCG TABLET PO SCH (10:14)
[2023-06-01] MEDS: SEVELAMER CARBONATE 800 MG POWD.PACK PO SCH ×2 (12:44→17:28)
[2023-06-01] MEDS ORDERED: IV NS 0.9% 250 ML IV ONE (15:12)
[2023-06-01] MEDS ORDERED: IOHEXOL-300 100 ML VIAL IV ONE (15:12)
[2023-06-01] MEDS ORDERED: CT SWABBABLE VALVE TRANS SET 1 EA INFUS.SET MC ONE (15:12)
[2023-06-01] MEDS ORDERED: FOLIC ACID 1 MG TABLET PO SCH (18:00)
[2023-06-01] MEDS ORDERED: ATORVASTATIN 40 MG TABLET PO SCH (18:00)
[2023-06-01] MEDS ORDERED: VIT B CMPLX 3/FA/VIT C/BIOTIN 1 TAB TABLET PO SCH (18:00)
[2023-06-01 18:47] VITALS: BP 135/72; TEMP 98.1; O2SAT 95
[2023-06-01] MEDS ORDERED: FLUCONAZOLE (100 MG) 100 MG TABLET PO SCH (19:30)
[2023-06-01 20:00] VITALS: BP 157/72; TEMP 98.6; O2SAT 94
[2023-06-01] MEDS: FLUCONAZOLE (100 MG) 100 MG TABLET PO ONE ×2 (20:40→21:15)
[2023-06-01] MEDS: PANTOPRAZOLE 40 MG/PACK PACK PO SCH (21:15)
[2023-06-01] MEDS ORDERED: ZOLPIDEM TARTRATE 10 MG TABLET PO SCH (22:00)
[2023-06-01] MEDS ORDERED: AMLODIPINE BESYLATE 10 MG TABLET PO SCH (22:00)
[2023-06-01] MEDS: SUCRALFATE 1 G TABLET PO SCH (23:03)
[2023-06-02] MEDS: PIPERACILLIN /TAZOBACTAM 2.25 G in IV D5W 50 ML IV SCH ×3 (01:06→11:39)
[2023-06-02] MEDS: SUCRALFATE 1 G TABLET PO SCH ×2 (07:17→11:40)
[2023-06-02] MEDS: LEVOTHYROXINE SODIUM 137 MCG TABLET PO SCH (07:17)
[2023-06-02] MEDS ORDERED: LEVOTHYROXINE SODIUM 137 MCG TABLET PO SCH (07:30)
[2023-06-02 07:46] LABS: BASOPHILS % (AUTO) 0.3 % (0.0-2.0); EOSINOPHILS # (AUTO) 0.2 K/uL (0.0-0.7); EOSINOPHILS % (AUTO) 2.6 % (0.0-6.0); HEMATOCRIT 30 % (33-45); HEMOGLOBIN 9.8 g/dL (11.5-14.8); LYMPHOCYTES # (AUTO) 0.8 K/uL (0.8-4.8); LYMPHOCYTES % (AUTO) 9.4 % (20.0-44.0); MEAN CORPUSCULAR HEMOGLOBIN 31 PG (26.0-33.0); MEAN CORPUSCULAR HGB CONC 33 g/dl (31.0-36.0); MEAN CORPUSCULAR VOLUME 95 fL (82-100); MONOCYTES # (AUTO) 0.9 K/uL (0.1-1.30); MONOCYTES % (AUTO) 11.5 % (2.0-12.0); NEUTROPHILS # (AUTO) 6.1 K/uL (1.8-8.9); NEUTROPHILS % (AUTO) 76.2 % (43.0-81.0); PLATELET COUNT (AUTO) 245 K/uL (150-450); RED BLOOD CELL COUNT(AUTO) 3.15 MIL/uL (4.0-5.2); RED CELL DISTRIBUTION WIDTH 18.9 % (11.5-15.0)
[2023-06-02] MEDS: SEVELAMER CARBONATE 800 MG POWD.PACK PO SCH (08:29)
[2023-06-02] MEDS: PANTOPRAZOLE 40 MG/PACK PACK PO SCH (08:30)
[2023-06-02 08:40] VITALS: BP 117/83; TEMP 98.9; O2SAT 96
[2023-06-02] MEDS ORDERED: ERGOCALCIFEROL (VITAMIN D 2) 50,000 UNIT CAPSULE PO SCH (09:00)
[2023-06-02 09:12] LABS: ALANINE AMINOTRANSFERASE 26 U/L (12-78); ALBUMIN 2.5 g/dL (3.4-5.0); ALKALINE PHOSPHATASE 74 U/L (46-116); ASPARTATE AMINOTRANSFERASE 34 U/L (15-37); BILIRUBIN,TOTAL 0.8 mg/dL (0.2-1.0); CALCIUM, SERUM 9.4 mg/dL (8.5-10.1); CARBON DIOXIDE 22 mmol/L (21-32); CHLORIDE 98 mmol/L (98-107); CREATININE 3.6 mg/dL (0.6-1.3); GLUCOSE 109 mg/dL (74-106); POTASSIUM 3.8 mmol/L (3.5-5.1); SODIUM SERUM 134 mmol/L (136-145); TOTAL PROTEIN, SERUM 7.5 g/dL (6.4-8.2); UREA NITROGEN, BLOOD 13 mg/dL (7-18)
[2023-06-02] MEDS ORDERED: SEVELAMER CARBONATE 800 MG TABLET PO SCH (13:00)
[2023-06-02] MEDS ORDERED: FLUCONAZOLE (100 MG) 100 MG TABLET PO SCH ×2 (20:00)
[2023-06-03 08:10] LABS: AFP, TUMOR MARKER <1.8 ng/mL (0.0-8.7); CANCER AG, 15-3 18.3 U/mL (0.0-25.0); IMMUNOGLOBULIN A, SERUM 313 mg/dL (64-422); IMMUNOGLOBULIN G, SERUM 1042 mg/dL (586-1602); IMMUNOGLOBULIN M, SERUM 41 mg/dL (26-217)
[2023-06-03 10:12] LABS: *SPE A/G RATIO 0.8 (0.7-1.7); *SPE ALBUMIN 2.6 g/dL (2.9-4.4); *SPE ALPHA-1-GLOBULIN 0.4 g/dL (0.0-0.4); *SPE BETA GLOBULIN 0.9 g/dL (0.7-1.3); *SPE GLOBULIN, TOTAL 3.2 g/dL (2.2-3.9); *SPE M-SPIKE Not Observed g/dL (Not Observed); *SPE PROTEIN TOTAL 5.8 g/dL (6.0-8.5)
[2023-06-03 12:06] LABS: FREE KAPPA LT CHAINS SERUM 218.3 mg/L (3.3-19.4); FREE LAMBDA LT CHAIN SERUM 157.5 mg/L (5.7-26.3); KAPPA/LAMBDA RATIO SERUM 1.39 (0.26-1.65)
[2023-06-03 14:11] LABS: HEPATITIS B SURFACE AB Reactive (.)
[2023-06-06 11:11] LABS: CHROMOGRANIN A 758.9 ng/mL (0.0-101.8)
== END 2023-06-02 14:21 | disposition home health service (06) | DRG 377 ==
LOC: ER 17:42 → TELE 22:17 → MED 06-01 12:01
PROVIDERS: ADMIT Nurse Practitioner Family; ATTEND Internal Medicine
PROC: 30233N1 Transfusion of Nonautologous Red Blood Cells into Peripheral Vein, Percutaneous Approach (ICD-10-PCS; 2023-05-27)
PROC: 5A1D70Z Performance of Urinary Filtration, Intermittent, Less than 6 Hours Per Day (ICD-10-PCS; 2023-05-27)
PROC: 05H633Z Insertion of Infusion Device into Left Subclavian Vein, Percutaneous Approach (ICD-10-PCS; 2023-05-28)
PROC: B547ZZA Ultrasonography of Left Subclavian Vein, Guidance (ICD-10-PCS; 2023-05-28)
PROC: 0DB98ZX Excision of Duodenum, Via Natural or Artificial Opening Endoscopic, Diagnostic (ICD-10-PCS; principal; 2023-06-02)
DX: K26.4 Chronic or unspecified duodenal ulcer with hemorrhage (principal); I50.33 Acute on chronic diastolic (congestive) heart failure; N18.6 End stage renal disease; C25.0 Malignant neoplasm of head of pancreas; I13.2 Hypertensive heart and chronic kidney disease with heart failure and with stage 5 chronic kidney disease, or end stage renal disease; D62 Acute posthemorrhagic anemia; C78.7 Secondary malignant neoplasm of liver and intrahepatic bile duct; C78.02 Secondary malignant neoplasm of left lung; J98.11 Atelectasis; B37.89 Other sites of candidiasis; E11.22 Type 2 diabetes mellitus with diabetic chronic kidney disease; K29.70 Gastritis, unspecified, without bleeding; Z66 Do not resuscitate; Z85.3 Personal history of malignant neoplasm of breast; Z85.528 Personal history of other malignant neoplasm of kidney; Z90.12 Acquired absence of left breast and nipple; Z90.5 Acquired absence of kidney; Z90.710 Acquired absence of both cervix and uterus; E89.0 Postprocedural hypothyroidism; Z99.2 Dependence on renal dialysis; E66.9 Obesity, unspecified; Z68.32 Body mass index [BMI] 32.0-32.9, adult; I70.8 Atherosclerosis of other arteries; E88.09 Other disorders of plasma-protein metabolism, not elsewhere classified; E78.5 Hyperlipidemia, unspecified; I25.10 Atherosclerotic heart disease of native coronary artery without angina pectoris; K57.30 Diverticulosis of large intestine without perforation or abscess without bleeding; Z85.850 Personal history of malignant neoplasm of thyroid
CPT/HCPCS: 36415; 36600; 71045-TC; 71260-TC; 74178; 76705-TC; 80048-TC; 80053-TC; 80061-TC; 80076-TC; 82105; 82272-TC; 82378; 82607-TC; 82728-TC; 82784; 83540-TC; 83605-TC; 83690-TC; 83735-TC; 83880; 84100-TC; 84155; 84165; 84439-TC; 84443-TC; 84484-TC; 85025-TC; 85045-TC; 85378-TC; 85730-TC; 86300; 86301; 86316; 86334; 86706; 86803; 86850-TC; 87040-TC; 87340; 90935-TC; A4216; A4223; A6403; C9113; G0378; J0885; J2060; J2543; J2704; J3480; J3490; J7030; J7040; J7050; J7060; P9016; P9047; Q9967